=== PATIENT | male | born 1980 | race Caucasian/White ===

== ENCOUNTER → 2018-10-03 11:44 | Emergency (ER) | payer BC ==
--- NOTE | 2018-10-03 12:03 | ED ---
Headache - HPI Summary HPI Summary: A 38 y/o male presents to [facility] with a chief complaint of a mild frontal GIPSON post fall since 13:00 10/02/18. He states that he fell while playing soccer and "everything went black". The patient is unsure if he lost consciousness but the fall was witnessed, so if he did lose consciousness it was not for very long. He also c/o neck soreness. The patient called his PCP, Dr. Humphrey, who recommended coming into the ED if he was unsure about his LOC. The patient rates his pain as a 3/10. He denies nausea and took ibuprofen the morning of . - History Of Current Complaint Chief Complaint: EDHeadInjury Stated Complaint: HEAD INJURY Time Seen by Provider: 10/03/18 11:54 Hx Obtained From: Patient Onset/Duration: Sudden Onset, Started days ago, Still Present Initially Headache Was: Mild Currently Pain Is: Mild Timing: Constant Location of Headache: Frontal Aggravating Factor: Nothing Allevating Factors: Nothing Associated Signs And Symptoms: Neck Pain - soreness - Allergies/Home Medications Allergies/Adverse Reactions: Allergies Allergy/AdvReac Type Severity Reaction Status Date / Time No Known Allergies Allergy Verified 10/03/18 11:48 PMH/Surg Hx/FS Hx/Imm Hx Endocrine/Hematology History: Denies: Hx Diabetes Cardiovascular History: Denies: Hx Hypercholesterolemia, Hx Hypertension Infectious Disease History: No Infectious Disease History: Denies: Traveled Outside the [place] in Last 30 Days - Family History Known Family History: Negative: Blood Disorder - Social History Lives: With Family Alcohol Use: None Substance Use Type: Reports: Marijuana Hx Tobacco Use: No Smoking Status (MU): Never Smoked Tobacco Review of Systems Negative: Fever ENT: Other - Positive: neck soreness Negative: Nausea Positive: Headache - mild frontal GIPSON All Other Systems Reviewed And Are Negative: Yes Physical Exam - Summary Physical Exam Summary: Appearance: The patient is well-nourished in no acute distress and in no acute pain. Skin: The skin is warm and dry and skin color reflects adequate perfusion. HEENT: The head is normocephalic and atraumatic. The pupils are equal and reactive. The conjunctivae are clear and without drainage. Nares are patent and without drainage. Mouth reveals moist mucous membranes and the throat is without erythema and exudate. The external ears are intact. The ear canals are patent and without drainage. The tympanic membranes are intact. Neck: The neck is supple with full range of motion and non-tender. There are no carotid bruits. There is no neck vein distension. Respiratory: Chest is non-tender. Lungs are clear to auscultation and breath sounds are symmetrical and equal. Cardiovascular: Heart is regular rate and rhythm. There is no murmur or rub auscultated. There is no peripheral edema and pulses are symmetrical and equal. Abdomen: The abdomen is soft and non-tender. There are normal bowel sounds heard in all four quadrants and there is no organomegaly palpated. Musculoskeletal: There is no back tenderness noted. Extremities are non-tender with full range of motion. There is good capillary refill. There is no peripheral edema or calf tenderness elicited. Neurological: Patient is alert and oriented to person, place and time. The patient has symmetrical motor strength in all four extremities. Cranial nerves are grossly intact. Deep tendon reflexes are symmetrical and equal in all four extremities. Psychiatric: The patient has an appropriate affect and does not exhibit any anxiety or depression. Triage Information Reviewed: Yes Vital Signs On Initial Exam: Initial Vitals Temp Pulse Resp BP Pulse Ox 97.3 F 53 16 139/72 98 10/03/18 11:46 10/03/18 11:46 10/03/18 11:46 10/03/18 11:46 10/03/18 11:46 Vital Signs Reviewed: Yes Diagnostics - Vital Signs Vital Signs Temp Pulse Resp BP Pulse Ox 10/03/18 11:46 97.3 F 53 16 139/72 98 - Laboratory Lab Statement: Any lab studies that have been ordered have been reviewed, and results considered in the medical decision making process. Headache Course/Dx - Course Course Of Treatment: Mr. Joe had a witnessed fall at about 20 hours ago where he hit the back of his head. He likely lost consciousness very briefly; he says everything went black but it was not reported to him that he was unconscious by bystanders. He had a sore neck and arm mild to moderate frontal headache when he woke up this morning and took ibuprofen. Reports a sore neck and mild frontal headache at this time. He denies any other complaint. He is nontoxic in appearance on arrival and his vital signs are stable. His exam is unremarkable with an intact neuro exam. His fundi are sharp. I think this represents at most a very mild concussion and it's recommended that he rest for a few days. - Diagnoses Provider Diagnoses: Head injury Discharge - Sign-Out/Discharge Documenting (check all that apply): Patient Departure - DC - Discharge Plan Condition: Stable Disposition: HOME Referrals: Lauren Humphrey MD [Primary Care Provider] - (2-3 days) Additional Instructions: Return to the ED for any new or worsening symptoms. - Billing Disposition and Condition Condition: STABLE Disposition: Home - Attestation Statements Document Initiated by Tikaibdouglas: Yes Documenting Scribe: Yaw Pierce Provider For Whom Tikaibdouglas is Documenting (Include Credential): Juan Cook MD Scribe Attestation: I, Yaw Pierce, scribed for Juan Cook MD on 10/03/18 at 1348. Scribe Documentation Reviewed: Yes Provider Attestation: The documentation as recorded by the Yaw schuler accurately reflects the service I personally performed and the decisions made by me, Juan Cook MD Status of Scribe Document: Viewed
[2018-10-03 12:08] VITALS: BP 00/00
== END | disposition home or self-care (01) ==
LOC: ED 11:44
DX: S09.90XA Unspecified injury of head, initial encounter (principal); W19.XXXA Unspecified fall, initial encounter; Y93.66 Activity, soccer; Y92.9 Unspecified place or not applicable
CPT/HCPCS: 99281